=== PATIENT | female | born 1990 | race Caucasian/White ===

== ENCOUNTER 2017-09-14 11:57 | Emergency (ER) | payer OTHER, SELFPAY | END 2017-09-14 13:48 | disposition home or self-care (01) | PROVIDERS: Emergency Provider Emergency Medicine; Visit Provider Emergency Medicine | DX: O99.613 Diseases of the digestive system complicating pregnancy, third trimester (principal); K52.9 Noninfective gastroenteritis and colitis, unspecified; O16.3 Unspecified maternal hypertension, third trimester; I10 Essential (primary) hypertension; Z3A.00 Weeks of gestation of pregnancy not specified; Z90.49 Acquired absence of other specified parts of digestive tract | CPT/HCPCS: 87070; 87430; 99282 ==

== ENCOUNTER 2017-09-15 14:42 | Emergency (ER) | payer OTHER, SELFPAY | END 2017-09-15 18:15 | disposition home or self-care (01) | PROVIDERS: Emergency Provider Emergency Medicine; Visit Provider Emergency Medicine | DX: O26.899 Other specified pregnancy related conditions, unspecified trimester (principal); B34.9 Viral infection, unspecified; O16.9 Unspecified maternal hypertension, unspecified trimester; Z3A.00 Weeks of gestation of pregnancy not specified | CPT/HCPCS: 71020; 80053; 85025; 87275; 87276; 96365; 96367; 96375; 99284 ==

== ENCOUNTER 2017-09-25 10:37 | Outpatient (CLI) | payer OTHER, SELFPAY | END 2017-09-25 12:15 | disposition home or self-care (01) | PROVIDERS: Visit Provider Nurse Practitioner Obstetrics & Gynecology | DX: O62.9 Abnormality of forces of labor, unspecified (principal); Z3A.38 38 weeks gestation of pregnancy | CPT/HCPCS: 59025; 81001; 87086 ==

== ENCOUNTER 2017-10-02 05:17 | Inpatient (IN) | payer MEDICAID, SELFPAY ==
[2017-10-02 05:32] VITALS: BMI 43.0
[2017-10-02 05:57] VITALS: BP 119/61; PULSE 112; RESP 18; BMI 43.0
[2017-10-02 06:55] LABS: Basophils % 0.3 % (0.1-2.0); Eosinophils # 0.1 K/mm3 (0.0-0.4); Eosinophils % 1.9 % (0.1-12.0); Hematocrit 31.6 % (37.0-47.0); Hemoglobin 10.8 g/dL (12.2-16.2); Lymphocytes # 1.7 K/mm3 (0.7-4.5); Lymphocytes % 24.5 K/mm3 (10-50); Mean Corpuscular HGB Conc 34.3 g/dL (31.8-35.4); Mean Corpuscular Hemoglobin 29.8 pg (27.0-31.2); Mean Corpuscular Volume 86.8 fl (81-99); Mean Platelet Volume 7.7 fl (7.4-10.4); Monocytes # 0.4 K/mm3 (0.1-1.0); Monocytes % 5.6 % (1.7-9.3); Neutrophils # 4.7 K/mm3 (1.8-7.8); Neutrophils % 67.7 % (37.0-80.0); Platelet Count 366 K/mm3 (142-424); Red Blood Count 3.64 M/mm3 (4.20-5.40); White Blood Count 6.9 K/mm3 (4.8-10.8)
[2017-10-02 06:59] LABS: Blood Urea Nitrogen 4 mg/dL (7-18); Creatinine Clearance Estimated 197 mg/ml (0-300); Creatinine,Serum 0.42 mg/dL (0.55-1.02); Estimated Glomerular Filt Rate > 60 ml/min (>60); GFR (African American) > 60 ML/MIN (>60); Glucose 95 mg/dL (74-106)
[2017-10-02 07:12] LABS: Potassium 4.1 mmoL/L (3.5-5.1)
--- NOTE | 2017-10-02 07:15 | HMH.ANESCL ---
[facility] Anesthesia Checklist - Patient Identification Patient Identification: Arm Band - Structural Data Admitted From: Inpatient Planned Operative Procedure/s: c section Verified Documents: History and Physical - NPO Status Verified Time NPO: 12:00 - Additional verifications Patient : Yes Anesthesia Reactions: No - Cardiovascular Assessment Heart Sounds: S1 & S2 Pulse Strength: Baseline Pulse Rhythm: Regular Peripheral Edema: No - Airway Assessment C-Spine Mobility Assessed: Yes TMJ Mobility Assessed: Yes Dentition: Good Dentition - Neurological Assessment Level of Consciousness: Awake Hx Seizures: No Numbness or tingling in extremities: No - Gastrointestinal Assessment Bowel Sounds: Active: RLQ, RUQ, LUQ, LLQ - Anesthesia Plan Anesthesia Risk discussed: Yes Anesthesia Plan: Verified ASA Class: II Anesthesia Type: Spinal [facility] Anesthesia HX I have reviewed the patient's past medical history: Yes Medical History: Denies:: Cancer, Diabetes Mellitus Type 1, Diabetes Mellitus Type 2, MRSA Other Surgeries: Yes: (2), Other (RT ANKLE, AND GALLBLADDER) Amputation: No *Family Hx:: Asthma, Cancer, Heart Attack, Hyperlipidemia, Hypertension
--- NOTE | 2017-10-02 07:18 | P.PN_ITS ---
[facility] Anesthesia Checklist - Patient Identification Patient Identification: Arm Band - Structural Data Admitted From: Inpatient Planned Operative Procedure/s: c section Verified Documents: History and Physical - NPO Status Verified Time NPO: 12:00 - Additional verifications Patient : Yes Anesthesia Reactions: No - Cardiovascular Assessment Heart Sounds: S1 & S2 Pulse Strength: Baseline Pulse Rhythm: Regular Peripheral Edema: No - Airway Assessment C-Spine Mobility Assessed: Yes TMJ Mobility Assessed: Yes Dentition: Good Dentition - Neurological Assessment Level of Consciousness: Awake Hx Seizures: No Numbness or tingling in extremities: No - Gastrointestinal Assessment Bowel Sounds: Active: RLQ, RUQ, LUQ, LLQ - Anesthesia Plan Anesthesia Risk discussed: Yes Anesthesia Plan: Verified ASA Class: II Anesthesia Type: Spinal [facility] Anesthesia HX I have reviewed the patient's past medical history: Yes Medical History: Denies:: Cancer, Diabetes Mellitus Type 1, Diabetes Mellitus Type 2, MRSA Other Surgeries: Yes: (2), Other (RT ANKLE, AND GALLBLADDER) Amputation: No *Family Hx:: Asthma, Cancer, Heart Attack, Hyperlipidemia, Hypertension
--- NOTE | 2017-10-02 07:21 | PC.NURSE ---
REPORT GIVEN TO MARICARMEN KAUR RN.
[2017-10-02 07:22] LABS: Chloride 103 mmol/L (98-107); Sodium 134 mmol/L (136-145)
[2017-10-02 07:23] LABS: Anion Gap 13.1 mEq/L (5-15); Carbon Dioxide 22 mmol/L (21.0-32.0)
--- NOTE | 2017-10-02 07:30 | HMH.OPNOTE ---
Date of procedure: 10/02/17 Pre-op Diagnosis:: Term term , previous section, desire for sterilization Post-op diagnosis:: same Procedure performed:: Repeat lower segment transverse section and bilateral salpingectomy Surgeon:: Ricki Still MD Career Specialist(s):: Barb Hickman Target Aircraft Controller:: German Louie Anesthesia: spinal Estimated blood loss (mL): 600 Clinical Note:: She is a 27-year-old 3 para 2 who was 39 weeks gestational age. She has had a previous section and as a result of that was offered repeat lower segment transverse section at term. She also expressed a desire for sterilization. The risks and benefits as well as the irreversibility of bilateral salpingectomy were to the patient prior to surgery. Operative findings:: She delivered a live-born female child at 8:05 AM on the morning of October 02, 2017. The baby had Apgars of 8 at 1 minute and 9 at 5 minutes. Tubes and ovaries appeared normal. There appeared to be a placental cyst or possibly an amniotic cyst at the fundus of the uterus. It was filled with clear fluid. The pH was 7.36. Operative note:: She was taken to the operating room where spinal anesthesia was found be adequate. She was prepped and draped in normal sterile fashion in the supine position with a leftward tilt. A Hall catheter was in the bladder. A Pfannenstiel skin incision was made with knife then carried through to the underlying layer of fascia with cautery. The fascia was opened in the midline with cautery and extended laterally using Murillo scissors. Avis clamps were applied to the superior aspect of the fascial incision which was tented up and the underlying rectus muscles dissected off using cautery. The [place] clamps were then applied to the inferior aspect of the fascial incision which in a similar fashion was tented up and the underlying rectus muscles dissected off using cautery. The rectus muscles were then in the midline, the peritoneum identified, and entered sharply with Metzenbaum scissors. This incision was then extended superiorly and inferiorly with cautery. We had good visualization of the bladder inferiorly. The bladder peritoneum was then opened in the midline and extended laterally using Metzenbaum scissors. A bladder flap was created digitally. The lower blade of the Landen was inserted so as to push the bladder out of the way. Transverse incision was made through the uterine muscle to the amnion. This incision was then extended laterally using fingers traction. The amnion was entered sharply with knife. The infant's head was then delivered atraumatically. This was followed by the anterior shoulder and the rest of the 's body atraumatically. The oropharynx and nasopharynx were bulb suctioned. The infant was then handed off to Dr. Damon who assigned Apgars of 8 at 1 minute and 9 at 5 minutes. We then obtained cord blood as well as cord pH. The pH was 7.36. Using gentle traction on the cord and countertraction on the fundus I was able to easily deliver the placenta intact. It had a normal three-vessel cord. The uterus was then cleared of clots and debris and exteriorized from the abdominal cavity. It was noted that there was a fluid-filled cyst at the fundus of the uterus and this also was removed. The uterine incision was then closed using running 0 Vicryl suture in a locked fashion. A second layer of the same suture was used to imbricate the first layer. The bladder peritoneum was then closed using running 2-0 Vicryl suture in a locked fashion. We then performed a bilateral salpingectomy by grasping the distal end of the fallopian tube. Using cautery I cauterized along the mesosalpinx. The tube was then removed at the proximal end. This was similar performed on the patient's opposite side. The gutters and cul-de-sac were then cleared of clots and debris and the uterus was returned the abdominal cavity. Once ag
[2017-10-02 07:36] LABS: Amphetamine/Metha Screen,Urine Negative ng/mL (<1000); Barbiturates Screen,Urine Negative ng/mL (<200); Benzodiazepines Screen,Urine Negative ng/mL (200); Cannabinoid Screen,Urine Negative ng/mL (<50); Cocaine Screen,Urine Negative ng/g (<300); Methadone Screen,Urine Negative ng/mL (<300); Opiate Screen,Urine Negative ng/mL (<300); Phencyclidine Screen,Urine Negative ng/mL (<25)
--- NOTE | 2017-10-02 07:43 | P.OP_ITS ---
Date of procedure: 10/02/17 Pre-op Diagnosis:: Term term , previous section, desire for sterilization Post-op diagnosis:: same Procedure performed:: Repeat lower segment transverse section and bilateral salpingectomy Surgeon:: Ricki Still MD Algology Teacher(s):: Barb Hickman Elastic Attacher Zigzag:: German Louie Anesthesia: spinal Estimated blood loss (mL): 600 Clinical Note:: She is a 27-year-old 3 para 2 who was 39 weeks gestational age. She has had a previous section and as a result of that was offered repeat lower segment transverse section at term. She also expressed a desire for sterilization. The risks and benefits as well as the irreversibility of bilateral salpingectomy were to the patient prior to surgery. Operative findings:: She delivered a live-born female child at 8:05 AM on the morning of October 02, 2017. The baby had Apgars of 8 at 1 minute and 9 at 5 minutes. Tubes and ovaries appeared normal. There appeared to be a placental cyst or possibly an amniotic cyst at the fundus of the uterus. It was filled with clear fluid. The pH was 7.36. Operative note:: She was taken to the operating room where spinal anesthesia was found be adequate. She was prepped and draped in normal sterile fashion in the supine position with a leftward tilt. A Hall catheter was in the bladder. A Pfannenstiel skin incision was made with knife then carried through to the underlying layer of fascia with cautery. The fascia was opened in the midline with cautery and extended laterally using Murillo scissors. Avis clamps were applied to the superior aspect of the fascial incision which was tented up and the underlying rectus muscles dissected off using cautery. The [place] clamps were then applied to the inferior aspect of the fascial incision which in a similar fashion was tented up and the underlying rectus muscles dissected off using cautery. The rectus muscles were then in the midline, the peritoneum identified, and entered sharply with Metzenbaum scissors. This incision was then extended superiorly and inferiorly with cautery. We had good visualization of the bladder inferiorly. The bladder peritoneum was then opened in the midline and extended laterally using Metzenbaum scissors. A bladder flap was created digitally. The lower blade of the Landen was inserted so as to push the bladder out of the way. Transverse incision was made through the uterine muscle to the amnion. This incision was then extended laterally using fingers traction. The amnion was entered sharply with knife. The infant's head was then delivered atraumatically. This was followed by the anterior shoulder and the rest of the 's body atraumatically. The oropharynx and nasopharynx were bulb suctioned. The infant was then handed off to Dr. Damon who assigned Apgars of 8 at 1 minute and 9 at 5 minutes. We then obtained cord blood as well as cord pH. The pH was 7.36. Using gentle traction on the cord and countertraction on the fundus I was able to easily deliver the placenta intact. It had a normal three-vessel cord. The uterus was then cleared of clots and debris and exteriorized from the abdominal cavity. It was noted that there was a fluid-filled cyst at the fundus of the uterus and this also was removed. The uterine incision was then closed using running 0 Vicryl suture in a locked fashion. A second layer of the same suture was used to imbricate the first layer. The bladder peritoneum was then closed using running 2-0 Vicryl suture in a locked fashion. We then performed a bilateral salpingectomy by grasping the distal end of the fallopian tube. Using c
[2017-10-02 07:48] LABS: Microscopic, Urine URINE MICROSCOPIC (MICROSCOPIC)
[2017-10-02 07:50] LABS: Appearance,Urine CLEAR (Clear); Bilirubin,Urine Negative (Negative); Blood, Urine Negative (Negative); Color,Urine YELLOW (Yellow); Glucose,Urine (UA) Negative (Negative); Ketones,Urine Negative (Negative); Leukocyte Esterase,Urine 3+ (Negative); Nitrate,Urine Negative (Negative); Protein,Urine Negative (Negative)
[2017-10-02 08:01] LABS: Bacteria,Urine 3+ /lpf; Squamous Epithelial Cell,Urine 20-50 #/hpf (0-5)
[2017-10-02 08:22] LABS: Cord Blood PH 7.36 (7.35-7.45)
[2017-10-02 08:55] VITALS: BP 123/69; PULSE 67; RESP 16; TEMP 36.4; O2SAT 98
--- NOTE | 2017-10-02 08:57 | HMH.ANESI ---
[facility] Anesthesia Record Part I Intake, IV Amount: 1,900 Estimated blood loss (mL): 600 Urine output (mL): 100 Blood Products used (#): none Blood Pressure: 108/92 SaO2: 98 Pulse Rate: 67 Respiratory Rate: 18 Temperature: 97.6 F Patient is:: Stable Stable to PACU at:: 08:55
--- NOTE | 2017-10-02 09:00 | P.CONPHA_ITS ---
[facility] Pharmacy VTE Monitoring - Patient Demographics Admission date: 10/02/17 Report Date: 10/02/17 Time: 09:00 Allergies/Adverse Reactions: No Known Drug Intolerances Allergy (Unknown, Unverified 09/17/17 14:51) NA Height: 1.7 m Weight: 124.738 kg - VTE Risk Labs: VTE Related Lab Results Hgb 10.8 g/dL (12.2-16.2) L 10/02/17 06:05 Hct 31.6 % (37.0-47.0) L 10/02/17 06:05 Plt Count 366 K/mm3 (142-424) 10/02/17 06:05 BUN 4 mg/dL (7-18) L 10/02/17 06:05 Creatinine 0.42 mg/dL (0.55-1.02) L 10/02/17 06:05 Estimated Creat Clear 197 mg/ml (0-300) 10/02/17 06:05 Clinical Trial Participant: No - Prophylaxis VTE Prophylaxis Ordered?: Yes Types of VTE Prophylaxis: IPCS Knee High (POST OP)
[2017-10-02 09:02] VITALS: BP 108/92; PULSE 67; RESP 18; TEMP 36.4; O2SAT 98
--- NOTE | 2017-10-02 09:02 | P.PN_ITS ---
[facility] Anesthesia Record Part I Intake, IV Amount: 1,900 Estimated blood loss (mL): 600 Urine output (mL): 100 Blood Products used (#): none Blood Pressure: 108/92 SaO2: 98 Pulse Rate: 67 Respiratory Rate: 18 Temperature: 97.6 F Patient is:: Stable Stable to PACU at:: 08:55
--- NOTE | 2017-10-02 09:03 | HMH.ANESII ---
[facility] Anesthesia Record Part II Discharge Time: 09:25 Destination: [facility] PACU nurse assessment reviewed?: Yes Patient Condition:: Good Anesthesia Complications:: None
--- NOTE | 2017-10-02 09:03 | P.PN_ITS ---
[facility] Anesthesia Record Part II Discharge Time: 09:25 Destination: [facility] PACU nurse assessment reviewed?: Yes Patient Condition:: Good Anesthesia Complications:: None
[2017-10-02 09:05] VITALS: BP 122/64; PULSE 81; RESP 16; O2SAT 99
[2017-10-02 09:15] VITALS: BP 118/67; PULSE 62; RESP 18; O2SAT 98
[2017-10-02 09:25] VITALS: BP 125/70; PULSE 63; RESP 18; TEMP 36.6; O2SAT 97
--- NOTE | 2017-10-02 12:25 | PC.NURSE ---
10/02/17 0855 Pt unable to move bilateral legs/feet d/t spinal anesthesia/appropriate for situation. Pt does have positive sensation to touch/pressure b/l feet and legs.
--- NOTE | 2017-10-02 12:33 | PC.NURSE ---
10/02/17 0925 Pt starting to move b/l feet, more so on left than right. Pt remains with positive sensation to pressure/touch, all consistent with spinal anesthesia/appropriate for situation
[2017-10-02 19:42] LABS: Microscopic,Cath URINE MICROSCOPIC (MICROSCOPIC)
[2017-10-02 19:46] LABS: Appearance,Urine/Cath CLEAR (Clear); Bilirubin,Cath Negative (Negative); Blood, Urine/Cath Negative (Negative); Color,Urine/Cath YELLOW (Yellow); Glucose,Urine/Cath (UA) Negative (Negative); Ketones,Urine/Cath Negative (Negative); Leukocyte Esterase,Cath Negative (Negative); Nitrate,Cath Negative (Negative); PH,Urine/Cath 7.5 (5.0-8.5); Protein,Urine/Cath Negative (Negative)
[2017-10-03 06:57] LABS: Hematocrit 29.4 % (37.0-47.0); Hemoglobin 9.6 g/dL (12.2-16.2)
--- NOTE | 2017-10-03 08:07 | HMH.ACPN ---
Internal Medicine - PN: Subj *Date: 10/03/17 *Time: 08:07 Interval history: She is doing very well this morning. She is eating and drinking and ambulating. Her pain is well controlled. She is bottlefeeding. Her lochia is normal. Her incision is clean and dry. Exam Vital signs and Labs for Last 24 Hours: Temp Pulse Resp BP Pulse Ox 97.9 F 63 18 125/70 97 10/02/17 09:25 10/02/17 09:25 10/02/17 09:25 10/02/17 09:25 10/02/17 09:25 Short CBC 10/03/17 Range/Units 06:18 Hgb 9.6 L (12.2-16.2) g/dL Hct 29.4 L (37.0-47.0) % Urine 10/02/17 Range/Units 07:45 Urine Color Yellow (Yellow) Urine Appearance Clear (Clear) Urine pH 7.5 (5.0-8.5) Ur Specific [place] 1.020 (1.005-1.030) Urine Protein Negative (Negative) Urine Glucose (UA) Negative (Negative) I & O for Last 24 hours: Intake & Output 09/30/17 10/01/17 10/02/17 10/03/17 11:59 11:59 11:59 11:59 Intake Total 2150 / 2150 Output Total 85 / 85 Balance 2064 / 2064 Microbiology Reports for the Last 24 Hours: Microbiology 10/02/17 05:25 Urine,Clean Catch Urine Culture - Final Multiple organisms, suggests contamination. no acute distress Assessment and Plan (1) Previous delivery, delivered Current visit: Yes Status: Acute Category: Surgical Code(s): O34.219 - Maternal care for unspecified type scar from previous delivery - Assessment and plan all Dx Assessment and Plan for all problems:: She is doing very well this morning. Her pain is well controlled. We will plan to send her home in 48 hours.
[2017-10-03 08:58] LABS: Bacteria,Urine/Cath TRACE /lpf; Mucus,Urine/Cath 2+ /lpf
--- NOTE | 2017-10-03 10:15 | DIET.NUTRFU ---
Pt linen changed @ 9am per pt request.
--- NOTE | 2017-10-03 10:17 | PC.NURSE ---
Pt linen changed at 9am per pt request
--- NOTE | 2017-10-03 11:14 | CARE MANAGER ---
MS JANNETH AND INFANT WILL STAY THEIR ALOTTED TIME THEN DISCHARGE TO HOME WITH AFTERCARE INSTRUCTIONS.
--- NOTE | 2017-10-04 10:44 | HMH.ACPN ---
Internal Medicine - PN: Subj Interval history: She is doing very well this morning. She is eating and drinking and ambulating. Her pain is well controlled. She is bottlefeeding. Her lochia is normal. Her incision is clean and dry. Exam Vital signs and Labs for Last 24 Hours: Temp Pulse Resp BP Pulse Ox 97.9 F 63 18 125/70 97 10/02/17 09:25 10/02/17 09:25 10/02/17 09:25 10/02/17 09:25 10/02/17 09:25 I & O for Last 24 hours: Intake & Output 10/01/17 10/02/17 10/03/17 10/04/17 11:59 11:59 11:59 11:59 Intake Total 2150 / 2150 Output Total 85 / 85 Balance 2064 / 2064 Microbiology Reports for the Last 24 Hours: Microbiology 10/02/17 05:25 Urine,Clean Catch Urine Culture - Final Multiple organisms, suggests contamination. no acute distress Assessment and Plan (1) Previous delivery, delivered Current visit: Yes Status: Acute Category: Surgical Code(s): O34.219 - Maternal care for unspecified type scar from previous delivery - Assessment and plan all Dx Assessment and Plan for all problems:: She is doing very well and we will plan to send her home tomorrow.
[2017-10-04 19:55] VITALS: BP 110/55; PULSE 91; RESP 18; TEMP 36.7; O2SAT 99
--- NOTE | 2017-10-05 09:18 | HMH.PNOBGP) ---
OB - PN: A/P - Plan day: 3 Plan: routine postop care, discharge home - Time Spent With Patient Total time spent is greater than 50% in coordination of care (as documented) at patient's floor/unit and/or counseling patient: less than 15 minutes (Patient is a 27 yo on POD #3, s/p schedules R C/S. No issues today. Plan for discharge.) OB - PN: Subj Interval history: She is doing very well this morning. She is eating and drinking and ambulating. Her pain is well controlled. She is bottlefeeding. Her lochia is normal. Her incision is clean and dry. Patient comments: no complaints, pain well controlled, tolerating diet, flatus present baby status: doing well, bottle feeding well (Patient reports no issues this morning. Her lochia is minimal. She is tolerating a regular diet. Ambulating and voiding without issues.) OB - PN: Obj Exam Vital signs: Temp Pulse Resp BP Pulse Ox 98.0 F 91 H 18 110/55 99 10/04/17 19:55 10/04/17 19:55 10/04/17 19:55 10/04/17 19:55 10/04/17 19:55 - Constitutional no acute distress, obese - Routine Respiratory Exam Present: CTA bilaterally - Routine Cardiovascular Exam Present: RRR - Routine Abdominal Exam Present: soft, normoactive bowel sounds Fundus: Present: firm Comments: incision clean/dry/intact - Urinary Catheter Management Hall Cath placed during this visit: no Urethral indwelling: No OB - PN: Obj Data - Labs CBC & Chem 7: 10/03/17 06:18 10/02/17 06:05
--- NOTE | 2017-10-05 09:21 | P.PN_ITS ---
OB - PN: A/P - Plan day: 3 Plan: routine postop care, discharge home - Time Spent With Patient Total time spent is greater than 50% in coordination of care (as documented) at patient's floor/unit and/or counseling patient: less than 15 minutes (Patient is a 27 yo on POD #3, s/p schedules R C/ S. No issues today. Plan for discharge.) OB - PN: Subj Interval history: She is doing very well this morning. She is eating and drinking and ambulating. Her pain is well controlled. She is bottlefeeding. Her lochia is normal. Her incision is clean and dry. Patient comments: no complaints, pain well controlled, tolerating diet, flatus present [place] baby status: doing well, bottle feeding well (Patient reports no issues this morning. Her lochia is minimal. She is tolerating a regular diet. Ambulating and voiding without issues.) OB - PN: Obj Exam Vital signs: Temp Pulse Resp BP Pulse Ox 98.0 F 91 H 18 110/55 99 10/04/17 19:55 10/04/17 19:55 10/04/17 19:55 10/04/17 19:55 10/04/17 19:55 - Constitutional no acute distress, obese - Routine Respiratory Exam Present: CTA bilaterally - Routine Cardiovascular Exam Present: RRR - Routine Abdominal Exam Present: soft, normoactive bowel sounds Fundus: Present: firm Comments: incision clean/dry/intact - Urinary Catheter Management Hall Cath placed during this visit: no Urethral indwelling: No OB - PN: Obj Data - Labs CBC & Chem 7: 10/03/17 06:18 10/02/17 06:05
== END 2017-10-05 11:58 | disposition home or self-care (01) | DRG 765 ==
PROVIDERS: Admitting Provider Nurse Practitioner Obstetrics & Gynecology; Family Provider Internal Medicine Adolescent Medicine; Visit Provider Nurse Practitioner Obstetrics & Gynecology
PROC: 0UL70ZZ Occlusion of Bilateral Fallopian Tubes, Open Approach (ICD-10-PCS; CPT 59514; principal; 2017-10-02 07:30)
DX: O34.211 Maternal care for low transverse scar from previous cesarean delivery (principal); O41.8X30 Other specified disorders of amniotic fluid and membranes, third trimester, not applicable or unspecified; N85.8 Other specified noninflammatory disorders of uterus; Z30.2 Encounter for sterilization; Z3A.39 39 weeks gestation of pregnancy; Z37.0 Single live birth
CPT/HCPCS: 59514; 58611; 59025; 80048; 80305; 81001; 82800; 85014; 85018; 85025; 86850; 87086; 88302; 90686; 90732; J2405

== ENCOUNTER 2017-12-14 16:08 | Emergency (ER) | payer MEDICAID, SELFPAY ==
[2017-12-14 16:33] VITALS: BP 139/84; PULSE 118; RESP 16; TEMP 36.9; O2SAT 96; BMI 40.1
--- NOTE | 2017-12-14 17:00 | HMH.EDURI ---
ED Disposition Clinical Impression: Upper respiratory infection, Acute streptococcal pharyngitis Disposition: Home, Self-Care Condition on Discharge: Fair Additional Instructions: 1- drink plenty of fluids. 2- ALTERNATE MOTRIN AND TYLENOL PRN FEVER AND BODY ACHES. 3- YOU NEED TO TAKE THE OLDER CHILDREN TO BE CHECKED FOR CARRIER STATE. 4- RETURN IF NEEDED. 5- FOLLOW UP WITH DR HUGHES SATURDAY Prescriptions: Benzonatate [Tessalon Perle 100mg Cap] 200 mg PO Q4HP PRN #21 cap PRN Reason: Cough Amoxicillin [Amoxicillin 500mg Cap] 500 mg PO TID #21 cap Referrals: Dylan Hughes MD [Primary Care Provider] - - Critical Care Critical Care Time: No Attestation: On 12/14/17, the high probability of a clinically significant, sudden or life threatening deterioration of the following system(s) required my full and direct attention, intervention and personal management. The time I documented below is in addition to time spent performing reported procedures but includes the following listed in this critical care notation. Medical Decision Making - Sabino Inquiry Pt receiving controlled substance: No Sabino was queried for this patient: No Vital Signs: 12/14/17 16:33 Temperature 98.4 F Temperature Source Oral Pulse Rate [Right Brachial] 118 H Respiratory Rate 16 Blood Pressure [Right Arm] 139/84 Blood Pressure Mean [Right Arm] 102 Blood Pressure Source [Right Arm] Automatic Cuff Blood Pressure Position [Right Arm] Sitting 02 Sat by Pulse Oximetry 96 Oxygen Delivery Method Room Air - Lab Data Lab Results 12/14/17 17:22: Group A Strep Rapid Positive A Medical Decision Narrative: Mom tested positive for streptococcal pharyngitis. I advised her that the older children need to be checked. I advised mom for a shot of Bicillin. I discussed this case with Dr. Clay who agreed that the baby will need to be treated at same time to for similar symptoms. URI/Sore Throat HPI - General Chief Complaint: Upper Respiratory Infection Stated Complaint: sore throat AH runny nose sneezing cough fever Time Seen by Provider: 12/14/17 16:40 Mode of Arrival: Ambulatory Limitations: No Limitations Description of Symptoms (Recalled from ER Triage Doc. by RN): SORE THROAT, HEADACHE SINCE SATURDAY. COUGHING AND SNEEZING. - History of Present Illness HPI Narrative: 27 years old white female 10 weeks s/p CS with 3 children. Her older children have the same symptom. She developed sinus congestion runny nose and sore throat. Her child developed the same symptoms today and both of them signed in the emergency room. She has no fever. She has no productive sputum she has no shortness of breath she has no nausea or vomiting. MD Complaint: cough, sore throat, rhinorrhea, nasal congestion Onset (ago): day(s) (Started yesterday.) Duration: intermittent Severity: mild Exacerbating factors: nothing Able to tolerate fluids by mouth: No Context: sick contacts Associated symptoms: denies other symptoms Treatments prior to arrival: none - Related Data Previous Rx's Medication Instructions Recorded Amoxicillin [Amoxicillin 500mg 500 mg PO TID #21 cap 12/14/17 Cap] Benzonatate [Tessalon Perle 100mg 200 mg PO Q4HP PRN #21 cap 12/14/17 Cap] Allergies Allergy/AdvReac Type Severity Reaction Status Date / Time No Known Drug Allergies Allergy Verified 12/14/17 16:40 [facility] History I have reviewed the patient's past medical history: Yes Medical History: Denies:: Cancer, Diabetes Mellitus Type 1, Diabetes Mellitus Type 2, MRSA, Seizures Other Surgeries: Yes: , Other Amputation: No - Social History Smoking Status: Never smoker Alcohol Intake: never Substance Use Type: denies use Occupational Status: employed Household Members: family, children - Psychiatric History Expresses thoughts of harming self/others: None Suicide Plan Description: No Plan Family Hx:: Asthma, Canc
--- NOTE | 2017-12-14 17:03 | ED_ITS ---
ED Disposition Clinical Impression: Upper respiratory infection, Acute streptococcal pharyngitis Disposition: Home, Self-Care Condition on Discharge: Fair Additional Instructions: 1- drink plenty of fluids. 2- ALTERNATE MOTRIN AND TYLENOL PRN FEVER AND BODY ACHES. 3- YOU NEED TO TAKE THE OLDER CHILDREN TO BE CHECKED FOR CARRIER STATE. 4- RETURN IF NEEDED. 5- FOLLOW UP WITH DR HUGHES SATURDAY Prescriptions: Benzonatate [Tessalon Perle 100mg Cap] 200 mg PO Q4HP PRN #21 cap PRN Reason: Cough Amoxicillin [Amoxicillin 500mg Cap] 500 mg PO TID #21 cap Referrals: Dylan Hughes MD [Primary Care Provider] - - Critical Care Critical Care Time: No Attestation: On 12/14/17, the high probability of a clinically significant, sudden or life threatening deterioration of the following system(s) required my full and direct attention, intervention and personal management. The time I documented below is in addition to time spent performing reported procedures but includes the following listed in this critical care notation. Medical Decision Making - Sabino Inquiry Pt receiving controlled substance: No Sabino was queried for this patient: No Vital Signs: 12/14/17 16:33 Temperature 98.4 F Temperature Source Oral Pulse Rate [Right Brachial] 118 H Respiratory Rate 16 Blood Pressure [Right Arm] 139/84 Blood Pressure Mean [Right Arm] 102 Blood Pressure Source [Right Arm] Automatic Cuff Blood Pressure Position [Right Arm] Sitting 02 Sat by Pulse Oximetry 96 Oxygen Delivery Method Room Air - Lab Data Lab Results 12/14/17 17:22: Group A Strep Rapid Positive A Medical Decision Narrative: Mom tested positive for streptococcal pharyngitis. I advised her that the older children need to be checked. I advised mom for a shot of Bicillin. I discussed this case with Dr. Clay who agreed that the baby will need to be treated at same time to for similar symptoms. URI/Sore Throat HPI - General Chief Complaint: Upper Respiratory Infection Stated Complaint: sore throat AH runny nose sneezing cough fever Time Seen by Provider: 12/14/17 16:40 Mode of Arrival: Ambulatory Limitations: No Limitations Description of Symptoms (Recalled from ER Triage Doc. by RN): SORE THROAT, HEADACHE SINCE SATURDAY. COUGHING AND SNEEZING. - History of Present Illness HPI Narrative: 27 years old white female 10 weeks s/p CS with 3 children. Her older children have the same symptom. She developed sinus congestion runny nose and sore throat. Her child developed the same symptoms today and both of them signed in the emergency room. She has no fever. She has no productive sputum she has no shortness of breath she has no nausea or vomiting. MD Complaint: cough, sore throat, rhinorrhea, nasal congestion Onset (ago): day(s) (Started yesterday.) Duration: intermittent Severity: mild Exacerbating factors: nothing Able to tolerate fluids by mouth: No Context: sick contacts Associated symptoms: denies other symptoms Treatments prior to arrival: none - Related Data Previous Rx's Medication Instructions Recorded Amoxicillin [Amoxicillin 500mg 500 mg PO TID #21 cap 12/14/17 Cap] Benzonatate [Tessalon Perle 100mg 200 mg PO Q4HP PRN #21 cap 12/14/17 Cap] Allergies Allergy/AdvReac Type Severity Reaction Status
[2017-12-14 17:39] LABS: Strep Scrn Group A (Rapid) Positive (Negative)
[2017-12-14 20:50] VITALS: BP 130/75; PULSE 80; RESP 16; TEMP 37.1; O2SAT 98
== END 2017-12-14 20:50 | disposition home or self-care (01) ==
PROVIDERS: Emergency Provider Emergency Medicine; Family Provider Internal Medicine Adolescent Medicine; PCP Internal Medicine Adolescent Medicine
DX: J02.0 Streptococcal pharyngitis (principal)
CPT/HCPCS: 87430; 96372; 99282; J0561

== ENCOUNTER → 2019-07-28 15:51 | Outpatient (CLI) | payer MEDICAID, SELFPAY ==
[2019-07-28 19:21] LABS: HCG,Quantitative 0 mIU/mL
== END ==
PROVIDERS: Visit Provider Nurse Practitioner Obstetrics & Gynecology
DX: Z32.00 Encounter for pregnancy test, result unknown (principal)
CPT/HCPCS: 36415; 84702

== ENCOUNTER → 2019-08-22 08:36 | Outpatient (CLI) | payer OTHER, SELFPAY ==
[2019-08-22 08:49] LABS: Basophils # 0.1 K/mm3 (0-0.2); Basophils % 0.6 % (0.1-2.0); Eosinophils # 0.5 K/mm3 (0.0-0.4); Eosinophils % 5.6 % (0.1-12.0); Hematocrit 39.4 % (37.0-47.0); Hemoglobin 12.7 g/dL (12.2-16.2); Lymphocytes # 2.4 K/mm3 (0.7-4.5); Lymphocytes % 26.2 % (10-50); Mean Corpuscular HGB Conc 32.2 g/dL (31.8-35.4); Mean Corpuscular Hemoglobin 28.4 pg (27.0-31.2); Mean Corpuscular Volume 88.4 fl (81-99); Mean Platelet Volume 7.1 fl (7.4-10.4); Monocytes # 0.5 K/mm3 (0.1-1.0); Neutrophils # 5.7 K/mm3 (1.8-7.8); Neutrophils % 62.6 % (37.0-80.0); Platelet Count 453 K/mm3 (142-424); Red Blood Count 4.46 M/mm3 (4.20-5.40); Red Cell Distribution Width 12.9 % (11.5-17.5); White Blood Count 9.1 K/mm3 (4.8-10.8)
[2019-08-22 12:02] LABS: Alanine Aminotransferase 22 U/L (12-78); Albumin Level 3.6 gm/dL (3.4-5.0); Albumin/Globulin Ratio 0.9 (1.1-1.8); Alkaline Phosphatase 107 U/L (46-116); Anion Gap 15.3 mEq/L (5-15); Aspartate Amino Transferase 14 U/L (15-37); Bilirubin,Total 0.2 mg/dL (0.2-1.0); Blood Urea Nitrogen 15 mg/dL (7-18); Calcium 8.7 mg/dL (8.5-10.1); Carbon Dioxide 27 mmol/L (21.0-32.0); Chloride 102 mmol/L (98-107); Creatinine,Serum 0.61 mg/dL (0.55-1.02); Estimated Glomerular Filt Rate 117 ml/min (>60); GFR (African American) 141 ML/MIN (>60); Globulin 3.8 gm/dl (1.3-3.2); Glucose 94 mg/dL (74-106); Potassium 4.3 mmoL/L (3.5-5.1); Sodium 140 mmol/L (136-145); Thyroid Stimulating Hormone 4.81 uIU/ml (0.358-3.740); Total Protein,Serum 7.4 gm/dL (6.4-8.2)
== END ==
PROVIDERS: Visit Provider Internal Medicine Adolescent Medicine
DX: R05 Cough (principal); R63.5 Abnormal weight gain
CPT/HCPCS: 36415; 80053; 84443; 85025